=== PATIENT | female | born 1995 | race Caucasian/White ===

== ENCOUNTER 2019-03-30 17:15 | Observation (INO) | payer OTHER ==
--- NOTE | 2019-03-30 17:33 | ER Document Report ---
ED Medical Screen (RME) - General Chief Complaint: Fainting Stated Complaint: SYNCOPE Time Seen by Provider: 03/30/19 17:29 Mode of Arrival: Ambulatory Information source: Patient Notes: Patient states that she was cooking developed chest pain became dizzy and passed out. Patient complains of continued left-sided chest pain at this time. Patient does report family history of early CA. I have greeted and performed a rapid initial assessment of this patient. A comprehensive ED assessment and evaluation of the patient, analysis of test results and completion of the medical decision making process will be conducted by additional ED providers. TRAVEL OUTSIDE OF THE [place] IN LAST 30 DAYS: No Physical Exam - Vital signs Vitals: Temp Pulse Resp BP Pulse Ox 98.5 F 99 16 127/77 H 100 03/30/19 17:19 03/30/19 17:19 03/30/19 17:19 03/30/19 17:19 03/30/19 17:19 - Cardiovascular Rhythm: Regular Heart sounds: S1 appreciated, S2 appreciated Course - Vital Signs Vital signs: Temp Pulse Resp BP Pulse Ox 98.5 F 99 16 127/77 H 100 03/30/19 17:19 03/30/19 17:19 03/30/19 17:19 03/30/19 17:19 03/30/19 17:19
[2019-03-30] MEDS ORDERED: NORMAL SALINE 1000 ML 1,000 ML IV ONE (17:48)
--- NOTE | 2019-03-30 17:57 | ER Document Report ---
ED General - General Mode of Arrival: Ambulatory TRAVEL OUTSIDE OF THE [place] IN LAST 30 DAYS: No <DIETER ELIZABETH - Last Filed: 03/30/19 20:05> <MAYALLEYDEEPA - Last Filed: 03/31/19 06:48> - General Chief Complaint: Fainting Stated Complaint: SYNCOPE Time Seen by Provider: 03/30/19 17:29 - HPI Notes: 24-year-old female to the emergency department with complaints of a syncopal episode that her occurred just prior to arrival. She states that she was cooking in her kitchen when she started to experience left-sided chest pain and became acutely dizzy. She describes her dizziness as feeling like she is got a pass out. She states that she was walking to go sit down in her living room when she passed out in her kitchen. She denies hitting her head. Her sister did witness the episode and there was no tonic-clonic shaking. She does not have a history of seizures. She is on the ParaGard IUD. She denies any leg pain. She denies any recent travel. She denies any recent trauma or surgery. She denies any history of DVT. She denies chance of . She states that she has a little bit of resulting left-sided chest pain that hurts more when she touches it. She is never had this chest pain before. She states that her dad had a heart attack at "age 30 or 40". She denies any history of hypertension, diabetes, hyperlipidemia and herself. She is not a smoker. She does admit to having 2 glasses of wine this evening. (DIETER ELIZABETH) - Related Data Allergies/Adverse Reactions: No Known Allergies Allergy (Unverified 03/30/19 19:51) Past Medical History - General Information source: Patient - Social History Smoking Status: Never Smoker Frequency of alcohol use: Occasional Drug Abuse: None Family History: CAD, DM, Hyperlipidemia, Hypertension Patient has suicidal ideation: No Patient has homicidal ideation: No <DIETER ELIZABETH - Last Filed: 03/30/19 20:05> Review of Systems - Review of Systems Constitutional: denies: Chills, Fever EENT: No symptoms reported Cardiovascular: Chest pain, Syncope, Lightheaded. denies: Palpitations, Heart racing, Orthopnea, Dyspnea, Dizziness, Edema Respiratory: denies: Cough, Short of breath Gastrointestinal: denies: Abdominal pain, Diarrhea, Nausea, Vomiting Genitourinary: denies: Frequency, Flank pain Musculoskeletal: denies: Joint pain, Muscle pain Skin: No symptoms reported Neurological/Psychological: No symptoms reported -: Yes All other systems reviewed and negative <DIETER ELIZABETH - Last Filed: 03/30/19 20:05> Physical Exam - Vital signs Interpretation: Normal - General General appearance: Appears well, Alert - HEENT Head: Normocephalic, Atraumatic Eyes: Normal Pupils: PERRL Ears: Normal External canal: Normal Tympanic membrane: Normal Sinus: Normal Nasal: Normal Mouth/Lips: Normal Pharynx: Normal Neck: Normal, Supple. No: Lymphadenopathy, Meningismus - Respiratory Respiratory status: No respiratory distress Chest status: Nontender. No: Accessory muscle use Breath sounds: Normal. No: Decreased air movement, Rales, Rhonchi, Stridor, Wheezing Chest palpation: Normal - Cardiovascular Rhythm: Regular Heart sounds: Normal auscultation Murmur: No - Abdominal Inspection: Normal Distension: No distension Bowel sounds: Normal Tenderness: Nontender Organomegaly: No organomegaly - Back Back: Normal, Nontender - Neurological Neuro grossly intact: Yes Cognition: Normal Orientation: AAOx4 [place] Coma Scale Eye Opening: Spontaneous [place] Coma Scale Verbal: Oriented [place] Coma Scale Motor: Obeys Commands [place] Coma Scale Total: 15 Speech: Normal Cranial nerves: Normal. No: Facial palsy, Forehead sparing, Gaze palsy, Sensory deficit, Tongue deviation Cerebellar coordination: Normal. No: Gait ataxia Motor strength normal: LUE, RUE, LLE, RLE Additional motor exam normals: Equal cotton converter. No: Pronator drift Sensory: Normal - Psychological Associated symptoms: Normal affect, Normal mood - Skin Skin Temperature: Warm Skin Moisture: Dry Skin Color: Normal <WENDIE ELIZABETHBEGUILLERMO Cardenas - Last Filed: 03/30/19 20:05> - Vital signs Vitals: Temp Pulse Resp BP Pulse Ox 98.5 F 99 16 127/77 H 100 03/30/19 17:19 03/30/19 17:19 03/30/19 17:19 03/30/19 17:19 03/30/19 17:19 Course - Laboratory Result Diagrams: 03/30/19 18:04 03/30/19 18:04 - EKG Interpretation by Co EKG shows normal: Sinus rhythm Rate: Tachycardia Rhythm: Other - sinus tachycardia <DIETER ELIZABETH - Last Filed: 03/30/19 20:05> - Laboratory Result Diagrams: 03/30/19 18:04 03/30/19 18:04 <DEEPA FOLEY - Last Filed: 03/31/19 06:48> - Re-evaluation Re-evalutation: 03/30/19 20:05 Turned patient over to SHAYNE Foley pending CTA. He will await results, appropriately dispo patient. (DIETER ELIZABETH) Troponin was cycled and is downtrending. Patient is asymptomatic on my evalua tion. CTA without perfect contrast bolus but does not show large pulmonary embolism, because there is no large pulmonary embolism I do not suspect this was the cause of patient's chest pain and syncopal episode. I am more concerned about a dangerous arrhythmia. Added thyroid studies and magnesium. Discussed with Dr. Navas, he does recommend admission to the hospital. I discussed with Dr. Andres, he requests I speak to Dr. Vo, cardiology on-call. I did speak with Dr. Vo, he states that he does recommend admission and he will speak to Dr. Andres. Dr. Andres accepted to telemetry observation. Discussed with patient, patient and family at bedside state appreciation and agreement. (DEEPA FOLEY) - Vital Signs Vital signs: Temp Pulse Resp BP Pulse Ox 98.0 F 110 H 16 127/53 H 99 03/31/19 03:16 03/31/19 03:16 03/31/19 03:16 03/31/19 03:16 03/31/19 03:16 - Laboratory Laboratory results interpreted by me: 03/30/19 03/30/19 03/30/19 17:43 18:04 18:04 Hgb 10.3 L Hct 31.7 L MCV 72 L MCH 23.2 L RDW 15.8 H D-Dimer Sodium 136.6 L Urine Protein 100 H Urine Blood LARGE H Ur Leukocyte Esterase MODERATE H 03/30/19 18:04 Hgb Hct MCV MCH RDW D-Dimer 0.79 H Sodium Urine Protein Urine Blood Ur Leukocyte Esterase - EKG Interpretation by Me Additional EKG results interpreted by me: 03/30/19 18:03 no STEMI, t wave inversion in lead III no priors for comparison. (DIETER ELIZABETH) Discharge <DIETER ELIZABETH - Last Filed: 03/30/19 20:05> - Discharge Admitting Provider: Dmitry (Hospitalist) Unit Admitted: Telemetry <DEEPA FOLEY - Last Filed: 03/31/19 06:48> - Discharge Clinical Impression: Chest pain Qualifiers: Chest pain type: unspecified Qualified Code(s): R07.9 - Chest pain, unspecified Episode of syncope Qualifiers: Syncope type: unspecified Qualified Code(s): R55 - Syncope and collapse Condition: Stable Disposition: ADMITTED OBSERVATION
[2019-03-30 18:02] LABS: APPEARANCE,URINE CLOUDY; BILIRUBIN,URINE NEGATIVE (NEGATIVE); COLOR,URINE YELLOW; GLUCOSE, URINE NEGATIVE (NEGATIVE); KETONES,URINE NEGATIVE (NEGATIVE); LEUKOCYTE ESTERASE,URINE MODERATE (NEGATIVE); NITRITE,URINE NEGATIVE (NEGATIVE); PROTEIN,URINE 100 mg/dL (NEGATIVE); URINE SPECIFIC GRAVITY 1.023; UROBILINOGEN,URINE NEGATIVE mg/dL (<2.0)
--- NOTE | 2019-03-30 18:07 | EKG REPORT ---
SEVERITY:- OTHERWISE NORMAL ECG - SINUS TACHYCARDIA : Confirmed by: Kushal Whitman MD 30-Mar-2019 18:06:53
[2019-03-30 18:20] LABS: ABSOLUTE BASOPHILS # (AUTO) 0.1 10^3/uL (0.0-0.2); ABSOLUTE EOSINOPHILS # (AUTO) 0.2 10^3/uL (0.0-0.6); ABSOLUTE LYMPHOCYTES (AUTO) 2.6 10^3/uL (0.5-4.7); ABSOLUTE MONOCYTES (AUTO) 0.6 10^3/uL (0.1-1.4); ABSOLUTE NEUT (AUTO) 6.3 10^3/uL (1.7-8.2); BASOPHILS % (AUTO) 1.2 % (0-2); EOSINOPHILS % (AUTO) 2.5 % (0-6); HEMATOCRIT 31.7 % (36.0-47.0); HEMOGLOBIN 10.3 g/dL (12.0-15.5); LYMPHOCYTES % (AUTO) 25.9 % (13-45); MEAN CORPUSCULAR HEMOGLOBIN 23.2 pg (27.0-33.4); MEAN CORPUSCULAR HGB CONC 32.3 g/dL (32.0-36.0); MEAN CORPUSCULAR VOLUME 72 fl (80-97); MONOCYTES % (AUTO) 6.4 % (3-13); PLATELET COUNT 364 10^3/uL (150-450); RED BLOOD COUNT 4.42 10^6/uL (3.72-5.28); RED CELL DISTRIBUTION WIDTH 15.8 % (11.5-14.0); TOTAL CELLS COUNTED % (AUTO) 100 %; WHITE BLOOD COUNT 9.9 10^3/uL (4.0-10.5)
[2019-03-30 18:37] LABS: ALBUMIN 4.2 g/dL (3.5-5.0); ALKALINE PHOSPHATASE 75 U/L (38-126); ANION GAP 11 (5-19); ASPARTATE AMINO TRANSFERASE 21 U/L (14-36); BILIRUBIN,DIRECT 0.1 mg/dL (0.0-0.4); BILIRUBIN,TOTAL 0.6 mg/dL (0.2-1.3); BLOOD UREA NITROGEN 11 mg/dL (7-20); CALCIUM 9.2 mg/dL (8.4-10.2); CARBON DIOXIDE 23 mmol/L (22-30); CHLORIDE 103 mmol/L (98-107); GLUCOSE 96 mg/dL (75-110); POTASSIUM 3.9 mmol/L (3.6-5.0); TOTAL PROTEIN 7.7 g/dL (6.3-8.2)
[2019-03-30] MEDS ORDERED: ASPIRIN 325 MG TABLET PO ONE (18:38)
--- NOTE | 2019-03-30 18:39 | RADIOLOGY REPORT (SQ) ---
EXAM DESCRIPTION: ELBOW LEFT OVER 2 VIEWS COMPLETED DATE/TIME: 03/30/2019 6:31 pm REASON FOR STUDY: syncope, elbow pain COMPARISON: None. NUMBER OF VIEWS: Four views. TECHNIQUE: AP, lateral, and both oblique radiographic images acquired of the left elbow. LIMITATIONS: None. FINDINGS: MINERALIZATION: Normal. BONES: No acute fracture or dislocation. No worrisome bone lesions. JOINT: No effusion. SOFT TISSUES: No soft tissue swelling. Antecubital fossa venous catheter. OTHER: No other significant finding. IMPRESSION: No acute bone abnormality of the left elbow. TECHNICAL DOCUMENTATION: JOB ID: [id number] [employer]- All Rights Reserved Reading location - IP/workstation name: [email or web address]
--- NOTE | 2019-03-30 18:39 | RADIOLOGY REPORT (SQ) ---
EXAM DESCRIPTION: CHEST 2 VIEWS COMPLETED DATE/TIME: 03/30/2019 6:31 pm REASON FOR STUDY: cp COMPARISON: None. EXAM PARAMETERS: NUMBER OF VIEWS: two views TECHNIQUE: Digital Frontal and Lateral radiographic views of the chest acquired. RADIATION DOSE: NA LIMITATIONS: none FINDINGS: LUNGS AND PLEURA: No opacities, masses or pneumothorax. No pleural effusion. MEDIASTINUM AND HILAR STRUCTURES: No masses or contour abnormalities. HEART AND VASCULAR STRUCTURES: Heart normal size. No evidence for failure. BONES: No acute findings. HARDWARE: None in the chest. OTHER: No other significant finding. IMPRESSION: NO ACUTE RADIOGRAPHIC FINDING IN THE CHEST. TECHNICAL DOCUMENTATION: JOB ID: [id number] [employer]- All Rights Reserved Reading location - IP/workstation name: [email or web address]
[2019-03-30] MEDS ORDERED: CEFTRIAXONE 1 GM/D5W RTU 1 GM/50 ML RTUPB IV ONE (19:54)
--- NOTE | 2019-03-30 19:58 | RADIOLOGY REPORT (SQ) ---
EXAM DESCRIPTION: CTA CHEST COMPLETED DATE/TIME: 03/30/2019 7:11 pm REASON FOR STUDY: syncope, chest pain, elevated D Dimer COMPARISON: Chest radiographs earlier performed on 03/30/2019 TECHNIQUE: CT scan of the chest performed using helical scanning technique with dynamic intravenous contrast injection. Images reviewed with lung, soft tissue and bone windows. Reconstructed coronal and sagittal MPR images reviewed. Additional 3 dimensional post-processing performed to develop Maximal Intensity Projection images ([place] P). All images stored on PACS. All CT scanners at this facility use dose modulation, iterative reconstruction, and/or weight based d osing when appropriate to reduce radiation dose to as low as reasonably achievable (ALARA). [facility]: Dose Right [facility]: CareDose [facility]: Dose Right [facility]: Teradose 4D [facility]: [place] CONTRAST TYPE AND DOSE: contrast/concentration: Isovue 350.00 mg/ml; Total Contrast Delivered: 55.0 ml; Total Saline Delivered: 50.0 ml 55 mL Isovue 350- low osmolar. Contrast bolus not optimized for the pulmonary arteries. RENAL FUNCTION: GFR > 60. RADIATION DOSE: CT Rad equipment meets quality standard of care and radiation dose reduction techniq ues were employed. CTDIvol: 13.2 - 15.0 mGy. DLP: 524 mGy-cm. . LIMITATIONS: None. FINDINGS: LUNGS AND PLEURA: No masses, infiltrates, or pneumothorax. No pleural effusions or pleura l calcifications. AORTA AND GREAT VESSELS: No aneurysm. Contrast bolus not optimized for the aorta. HEART: No pericardial effusion. No significant coronary artery calcifications. PULMONARY ARTERIES: No large filling defect within the main lobar or segmental pulmonary arteries. HILAR AND MEDIASTINAL STRUCTURES: No identified masses or abnormal nodes. HARDWARE: None in the chest. UPPER ABDOMEN: No significant findings. Limited exam. THYROID AND OTHER SOFT TISSUES: No masses. No adenopathy. BONES: No acute or significant finding. 3D MIPS: Confirm above findings. OTHER: No other significant finding. IMPRESSION: Contrast bolus not optimized for the pulmonary arterial vasculature. No large pulmonary embolism, findings of pulmonary infarct, or secondary signs of right heart strain. Overall, unremar kable chest CT. COMMENT: Quality ID # [id number]: Final reports with documentation of one or more dose reduction techniques (e.g., Automated exposure control, adjustment of the mA and/or kV according to patient size, use of iterative reconstruction technique) TECHNICAL DOCUMENTATION: JOB ID: [id number] [employer]- All Rights Reserved Reading location - IP/workstation name: [email or web address]
[2019-03-30] MEDS ORDERED: ACETAMINOPHEN 325 MG TABLET PO PRN (22:03)
[2019-03-30] MEDS ORDERED: MAG HYDROX/AL HYDROX/SIMETH SUSP 30 ML UDCUP PO PRN (22:03)
[2019-03-30] MEDS ORDERED: ASPIRIN 81 MG TABLET, CHEWABLE PO ONE (22:03)
[2019-03-30] MEDS ORDERED: ENOXAPARIN SODIUM INJ 100 MG/1 ML DISP.SYRIN SUBCUT ONE (22:15)
[2019-03-30 22:47] LABS: FREE T4 (FREE THYROXINE) 1.13 ng/dL (0.78-2.19)
[2019-03-30 23:01] LABS: THYROID STIMULATING HORMONE 2.22 uIU/mL (0.47-4.68)
[2019-03-30 23:17] LABS: URINE AMPHETAMINES SCREEN NEGATIVE; URINE BARBITURATES SCREEN NEGATIVE; URINE BENZODIAZEPINES SCREEN NEGATIVE; URINE COCAINE SCREEN NEGATIVE; URINE MARIJUANA (THC) SCREEN NEGATIVE; URINE METHADONE SCREEN NEGATIVE; URINE PHENCYCLIDINE SCREEN NEGATIVE
--- NOTE | 2019-03-31 04:47 | PDOC H&P ---
History of Present Illness Admission Date/PCP: 03/30/19 22:11 IRLANDA MOJICA DO Patient complains of: Fainting History of Present Illness: PETTY MABRY is a 24 year old female without past medical history who presents 1 hour after an episode of 5 out of 5 sternal chest pain which occurred while cooking. It was associated with generalized weakness and dizziness followed by a witnessed syncopal episode falling to the floor with a brief loss of consciousness without seizure-like activity or postictal state. There is no preceding or subsequent headache, blurred vision, palpitations, nausea or vomiting. In the emergency room she has an unremarkable work-up including CTA chest and she is referred to the hospitalist for observation. She denies histo ry of exertional syncope or family history of sudden . Patient denies previous episode she denies any medications and is otherwise felt well. Past Medical History Medical History: None Cardiac Medical History: Reports: None Pulmonary Medical History: Reports: None EENT Medical History: Reports: None Neurological Medical History: Reports: None Endocrine Medical History: Reports: None Renal/ Medical History: Reports: None Malignancy Medical History: Reports: None GI Medical History: Reports: None Musculoskeltal Medical History: Reports: None Skin Medical History: Reports: None Psychiatric Medical History: Reports: None Traumatic Medical History: Reports: None Hematology: Reports: None Infectious Medical History: Reports: None Past Surgical History Past Surgical History: Reports: None Social History Information Source: Patient Lives with: Spouse/Significant other Smoking Status: Never Smoker Electronic Cigarette use?: No Hx Recreational Drug Use: No Drugs: None - Advance Directive Resuscitation Status: Full Code Family History Family History: CAD, DM, Hyperlipidemia, Hypertension Parental Family History Reviewed: Yes Children Family History Reviewed: Yes Sibling(s) Family History Reviewed.: Yes Medication/Allergy Allergies/Adverse Reactions: No Known Allergies Allergy (Unverified 03/30/19 19:51) Physical Exam Vital Signs: Temp Pulse Resp BP Pulse Ox 98.0 F 110 H 16 127/53 H 99 03/31/19 03:16 03/31/19 03:16 03/31/19 03:16 03/31/19 03:16 03/31/19 03:16 Intake & Output 03/29/19 03/30/19 03/31/19 11:59 11:59 11:59 Intake Total 1000 Balance 1000 Weight 92.3 kg General appearance: PRESENT: no acute distress, well-developed, well-nourished Head exam: PRESENT: atraumatic, normocephalic Eye exam: PRESENT: conjunctiva pink, EOMI, PERRLA. ABSENT: scleral icterus Ear exam: PRESENT: normal external ear exam Mouth exam: PRESENT: moist, tongue midline Neck exam: ABSENT: carotid bruit, JVD, lymphadenopathy, thyromegaly Respiratory exam: PRESENT: clear to auscultation vish. ABSENT: rales, rhonchi, wheezes Cardiovascular exam: PRESENT: RRR, other - Reproducible pain to palpation of sternum.. ABSENT: diastolic murmur, rubs, systolic murmur Pulses: PRESENT: normal dorsalis pedis pul Vascular exam: PRESENT: normal capillary refill GI/Abdominal exam: PRESENT: normal bowel sounds, soft. ABSENT: distended, guarding, mass, organolmegaly, rebound, tenderness Torso Front/Back Image: 1 - Reproducible pain to palpation Rectal exam: PRESENT: deferred Extremities exam: PRESENT: full ROM. ABSENT: calf tenderness, clubbing, pedal edema Neurological exam: PRESENT: alert, awake, oriented to person, oriented to place, oriented to time, oriented to situation, CN II-XII grossly intact. ABSENT: motor sensory deficit Psychiatric exam: PRESENT: appropriate affect, normal mood. ABSENT: homicidal ideation, suicidal ideation Skin exam: PRESENT: dry, intact, warm. ABSENT: cyanosis, rash Results Laboratory Results: 03/30/19 18:04 03/30/19 18:04 03/30/19 03/30/19 03/30/19 17:43 17:43 18:04 WBC 9.9 RBC 4.42 Hgb 10.3 L Hct 31.7 L MCV 72 L MCH 23.2 L MCHC 32.3 RDW 15.8 H Plt Count 364 Seg Neutrophils % 64.0 Sodium Potassium Chloride Carbon Dioxide Anion Gap BUN Creatinine Est GFR ( Amer) Glucose Calcium Magnesium 1.9 Total Bilirubin AST Alkaline Phosphatase Total Protein Albumin TSH Free T4 Serum HCG, Qual Urine Color YELLOW Urine Appearance CLOUDY Urine pH 5.0 Ur Specific [place] 1.023 Urine Protein 100 H Urine Glucose (UA) NEGATIVE Urine Ketones NEGATIVE Urine Blood LARGE H Urine Nitrite NEGATIVE Ur Leukocyte Esterase MODERATE H Urine WBC (Auto) 91 Urine RBC (Auto) >182 03/30/19 03/30/19 03/30/19 18:04 18:04 18:04 WBC RBC Hgb Hct MCV MCH MCHC RDW Plt Count Seg Neutrophils % Sodium 136.6 L Potassium 3.9 Chloride 103 Carbon Dioxide 23 Anion Gap 11 BUN 11 Creatinine 0.65 Est GFR ( Amer) > 60 Glucose 96 Calcium 9.2 Magnesium Total Bilirubin 0.6 AST 21 Alkaline Phosphatase 75 Total Protein 7.7 Albumin 4.2 TSH 2.22 Free T4 1.13 Serum HCG, Qual NEGATIVE Urine Color Urine Appearance Urine pH Ur Specific [place] Urine Protein Urine Glucose (UA) Urine Ketones Urine Blood Urine Nitrite Ur Leukocyte Esterase Urine WBC (Auto) Urine RBC (Auto) 03/30/19 03/30/19 03/31/19 18:04 20:40 02:37 Troponin I 0.072 0.060 0.057 Impressions: Chest X-Ray 03/30/19 17:31 IMPRESSION: NO ACUTE RADIOGRAPHIC FINDING IN THE CHEST. Elbow X-Ray 03/30/19 17:32 IMPRESSION: No acute bone abnormality of the left elbow. Chest/Abdomen CTA 03/30/19 18:37 IMPRESSION: Contrast bolus not optimized for the pulmonary arterial vasculature. No large pulmonary embolism, findings of pulmonary infarct, or secondary signs of right heart strain. Overall, unremarkable chest CT. Assessment and Plan - Diagnosis (1) Chest pain Qualifiers: Chest pain type: unspecified Qualified Code(s): R07.9 - Chest pain, unspecified Is this a current diagnosis for this admission?: Yes Plan: Unclear cause though likely muscle strain as reproducible to chest wall palpation. Follow-up telemetry and cardiac enzymes (2) Episode of syncope Qualifiers: Syncope type: unspecified Qualified Code(s): R55 - Syncope and collapse Is this a current diagnosis for this admission?: Yes Plan: Likely vasovagal secondary to pain, follow-up telemetry and cardiac enzymes. (3) Microcytic anemia Is this a current diagnosis for this admission?: Yes Plan: Likely iron deficient, follow-up anemia labs
[2019-03-31 05:05] LABS: RETICULOCYTE COUNT (AUTO) 1.26 % (0.66-2.85)
[2019-03-31 05:12] LABS: IRON(TIBC) 18.2 ug/dL (37-170)
[2019-03-31 05:48] LABS: FERRITIN 4.01 ng/mL (6.2-137.0)
[2019-03-31 06:18] LABS: FOLATE 7.93 ng/mL (>2.76)
[2019-03-31 08:23] VITALS: BP 119/66
[2019-03-31 08:31] LABS: HEMATOCRIT 29.7 % (36.0-47.0); HEMOGLOBIN 9.7 g/dL (12.0-15.5); MEAN CORPUSCULAR HEMOGLOBIN 23.5 pg (27.0-33.4); MEAN CORPUSCULAR HGB CONC 32.7 g/dL (32.0-36.0); MEAN CORPUSCULAR VOLUME 72 fl (80-97); PLATELET COUNT 328 10^3/uL (150-450); RED BLOOD COUNT 4.13 10^6/uL (3.72-5.28); RED CELL DISTRIBUTION WIDTH 15.7 % (11.5-14.0); WHITE BLOOD COUNT 7.3 10^3/uL (4.0-10.5)
[2019-03-31] MEDS ORDERED: ENOXAPARIN SODIUM INJ 100 MG/1 ML DISP.SYRIN SUBCUT SCH (10:00)
--- NOTE | 2019-03-31 16:33 | PDOC DISCHARGE SUMMARY ---
Impression - Admit/DC Date/PCP Admission Date/Primary Care Provider: 03/30/19 22:11 IRLANDA TITUS MOJICA, DO Discharge Date: 03/31/19 - Discharge Diagnosis (1) Syncope Is this a current diagnosis for this admission?: Yes - Additional Information Resuscitation Status: Full Code Discharge Diet: As Tolerated Discharge Activity: Activity As Tolerated, Balance Activity w/Rest Referrals: PRIMARY,CARE PROVIDER [Other] (PATIENT WILL MAKE OWN APPT.) Prescriptions: Ferrous Sulfate [Feosol 325 mg Tablet] 325 mg PO BIDPCBS #60 tablet Pantoprazole Sodium [Protonix [address] Packet] 40 mg PO QAM #30 granpkt. Home Medications: Ferrous Sulfate [Feosol 325 mg Tablet] 325 mg PO BIDPCBS #60 tablet 03/31/19 Pantoprazole Sodium [Protonix [address] Packet] 40 mg PO QAM #30 granpkt. 03/31/19 History of Present Illiness History of Present Illness: Admitting hospitalist's H&P: PETTY MABRY is a 24 year old female without past medical history who presents 1 hour after an episode of 5 out of 5 sternal chest pain which occurred while cooking. It was associated with generalized weakness and dizziness followed by a witnessed syncopal episode falling to the floor with a brief loss of consciousness without seizure-like activity or postictal state. There is no preceding or subsequent headache, blurred vision, palpitations, nausea or vomiting. In the emergency room she has an unremarkable work-up including CTA chest and she is referred to the hospitalist for observation. Hospital Course Hospital Course: Patient was admitted for his syncope. Upon encounter, she is chest pain-free and denies any acute symptoms. Upon further questioning, she does say that she has prior episodes in the past where she gets really dizzy and lightheaded when she stands up. She says that prior to presentation, she was standing in the kitchen when she had the same dizziness and lightheadedness before passing out. Her orthostatic vital signs were unremarkable. She was seen by cardiology as well. She will closely follow-up with Dr. Bang who has recommended outpatient stress testing, echocardiogram and possible 30-day event monitoring when she sees his in his clinic. Physical Exam Vital Signs: Temp Pulse Resp BP Pulse Ox 97.7 F 83 16 119/66 99 03/31/19 10:33 10/14/19 10:33 03/31/19 10:33 03/31/19 10:33 03/31/19 10:33 Intake & Output 03/30/19 03/31/19 04/01/19 06:59 06:59 06:59 Intake Total 1000 480 Balance 1000 480 Weight 203 lb 7.787 oz General appearance: PRESENT: no acute distress, well-developed, well-nourished Head exam: PRESENT: atraumatic, normocephalic Eye exam: PRESENT: conjunctiva pink, EOMI, PERRLA. ABSENT: scleral icterus Ear exam: PRESENT: normal external ear exam Mouth exam: PRESENT: moist, tongue midline Neck exam: ABSENT: carotid bruit, JVD, lymphadenopathy, thyromegaly Respiratory exam: PRESENT: clear to auscultation vish. ABSENT: rales, rhonchi, wheezes Cardiovascular exam: PRESENT: RRR. ABSENT: diastolic murmur, rubs, systolic murmur Pulses: PRESENT: normal dorsalis pedis pul GI/Abdominal exam: PRESENT: normal bowel sounds, soft. ABSENT: distended, guarding, mass, organolmegaly, rebound, tenderness Rectal exam: PRESENT: deferred Extremities exam: PRESENT: full ROM. ABSENT: calf tenderness, clubbing, pedal edema Neurological exam: PRESENT: alert, awake, oriented to person, oriented to place, oriented to time, oriented to situation, CN II-XII grossly intact. ABSENT: motor sensory deficit Results Laboratory Results: WBC 7.3 10^3/uL (4.0-10.5) 03/31/19 08:08 RBC 4.13 10^6/uL (3.72-5.28) 03/31/19 08:08 Hgb 9.7 g/dL (12.0-15.5) L 03/31/19 08:08 Hct 29.7 % (36.0-47.0) L 03/31/19 08:08 MCV 72 fl (80-97) L 03/31/19 08:08 MCH 23.5 pg (27.0-33.4) L 03/31/19 08:08 MCHC 32.7 g/dL (32.0-36.0) 03/31/19 08:08 RDW 15.7 % (11.5-14.0) H 03/31/19 08:08 Plt Count 328 10^3/uL (150-450) 03/31/19 08:08 Lymph % (Auto) 25.9 % (13-45) 03/30/19 18:04 [place] % (Auto) 6.4 % (3-13) 03/30/19 18:04 Eos % (Auto) 2.5 % (0-6) 03/30/19 18:04 Baso % (Auto) 1.2 % (0-2) 03/30/19 18:04 Reticulocyte # 0.050 10^6/uL (0.028-0.122) 03/31/19 04:51 Absolute Neuts (auto) 6.3 10^3/uL (1.7-8.2) 03/30/19 18:04 Absolute Lymphs (auto) 2.6 10^3/uL (0.5-4.7) 03/30/19 18:04 Absolute Monos (auto) 0.6 10^3/uL (0.1-1.4) 03/30/19 18:04 Absolute Eos (auto) 0.2 10^3/uL (0.0-0.6) 03/30/19 18:04 Absolute Basos (auto) 0.1 10^3/uL (0.0-0.2) 03/30/19 18:04 Seg Neutrophils % 64.0 % (42-78) 03/30/19 18:04 Retic Count (auto) 1.26 % (0.66-2.85) 03/31/19 04:51 D-Dimer 0.79 ug/mL (0.00-0.50) H 03/30/19 18:04 Sodium 136.6 mmol/L (137-145) L 03/30/19 18:04 Potassium 3.9 mmol/L (3.6-5.0) 03/30/19 18:04 Chloride 103 mmol/L (98-107) 03/30/19 18:04 Carbon Dioxide 23 mmol/L (22-30) 03/30/19 18:04 Anion Gap 11 (5-19) 03/30/19 18:04 BUN 11 mg/dL (7-20) 03/30/19 18:04 Creatinine 0.65 mg/dL (0.52-1.25) 03/30/19 18:04 Est GFR ( Amer) > 60 (>60) 03/30/19 18:04 Est GFR (MDRD) Non-Af > 60 (>60) 03/30/19 18:04 Glucose 96 mg/dL (75-110) 03/30/19 18:04 POC Glucose 103 mg/dL (70-110) 03/30/19 18:01 Calcium 9.2 mg/dL (8.4-10.2) 03/30/19 18:04 Magnesium 1.9 mg/dL (1.6-2.3) 03/30/19 17:43 Iron 18.2 ug/dL (37-170) L 03/31/19 04:51 TIBC 337 ug/dL (250-450) 03/31/19 04:51 % Saturation 5 % 03/31/19 04:51 Ferritin 4.01 ng/mL (6.2-137.0) L 03/31/19 04:51 Total Bilirubin 0.6 mg/dL (0.2-1.3) 03/30/19 18:04 Direct Bilirubin 0.1 mg/dL (0.0-0.4) 03/30/19 18:04 Neonat Total Bilirubin Not Reportable 03/30/19 18:04 Neonat Direct Bilirubin Not Reportable 03/30/19 18:04 Neonat Indirect Bili Not Reportable 03/30/19 18:04 AST 21 U/L (14-36) 03/30/19 18:04 ALT 15 U/L (<35) 03/30/19 18:04 Alkaline Phosphatase 75 U/L (38-126) 03/30/19 18:04 Troponin I 0.065 ng/mL 03/31/19 08:08 Total Protein 7.7 g/dL (6.3-8.2) 03/30/19 18:04 Albumin 4.2 g/dL (3.5-5.0) 03/30/19 18:04 Vitamin B12 583.0 pg/mL (239-931) 03/31/19 04:51 Folate 7.93 ng/mL (>2.76) 03/31/19 04:51 TSH 2.22 uIU/mL (0.47-4.68) 03/30/19 18:04 Free T4 1.13 ng/dL (0.78-2.19) 03/30/19 18:04 Serum HCG, Qual NEGATIVE (NEGATIVE) 03/30/19 18:04 Urine Color YELLOW 03/30/19 17:43 Urine Appearance CLOUDY 03/30/19 17:43 Urine pH 5.0 (5.0-9.0) 03/30/19 17:43 Ur Specific [place] 1.023 03/30/19 17:43 Urine Protein 100 mg/dL (NEGATIVE) H 03/30/19 17:43 Urine Glucose (UA) NEGATIVE mg/dL (NEGATIVE) 03/30/19 17:43 Urine Ketones NEGATIVE mg/dL (NEGATIVE) 03/30/19 17:43 Urine Blood LARGE (NEGATIVE) H 03/30/19 17:43 Urine Nitrite NEGATIVE (NEGATIVE) 03/30/19 17:43 Urine Bilirubin NEGATIVE (NEGATIVE) 03/30/19 17:43 Urine Urobilinogen NEGATIVE mg/dL (<2.0) 03/30/19 17:43 Ur Leukocyte Esterase MODERATE (NEGATIVE) H 03/30/19 17:43 Urine WBC (Auto) 91 /HPF 03/30/19 17:43 Urine RBC (Auto) >182 /HPF 03/30/19 17:43 Urine Bacteria (Auto) TRACE /HPF 03/30/19 17:43 Squamous Epi Cells Auto 20 /HPF 03/30/19 17:43 Urine Mucus (Auto) OCC /LPF 03/30/19 17:43 Urine Ascorbic Acid NEGATIVE (NEGATIVE) 03/30/19 17:43 Urine Opiates Screen NEGATIVE 03/30/19 17:43 Urine Methadone Screen NEGATIVE 03/30/19 17:43 Ur Barbiturates Screen NEGATIVE 03/30/19 17:43 Ur Phencyclidine Scrn NEGATIVE 03/30/19 17:43 Ur Amphetamines Screen NEGATIVE 03/30/19 17:43 U Benzodiazepines Scrn NEGATIVE 03/30/19 17:43 Urine Cocaine Screen NEGATIVE 03/30/19 17:43 U Marijuana (THC) Screen NEGATIVE 03/30/19 17:43 03/30/19 03/30/19 03/31/19 18:04 20:40 02:37 Troponin I 0.072 0.060 0.057 03/31/19 08:08 Troponin I 0.065 Impressions: Chest X-Ray 03/30/19 17:31 IMPRESSION: NO ACUTE RADIOGRAPHIC FINDING IN THE CHEST. Elbow X-Ray 03/30/19 17:32 IMPRESSION: No acute bone abnormality of the left elbow. Chest/Abdomen CTA 03/30/19 18:37 IMPRESSION: Contrast bolus not optimized for the pulmonary arterial vasculature. No large pulmonary embolism, findings of pulmonary infarct, or secondary signs of right heart strain. Overall, unremarkable chest CT. Stroke Is this a Stroke Patient?: No Acute Heart Failure - Is this a Heart Failure Patient?: No
[2019-03-31] MEDS ORDERED: FERROUS SULFATE 325 MG TABLET PO SCH (18:00)
== END 2019-03-31 11:29 | disposition home or self-care (01) ==
LOC: ER 17:15 → EH 22:11 → 5 23:11
PROVIDERS: ADMIT Internal Medicine; ATTEND Internal Medicine
DX: R55 Syncope and collapse (principal); R07.89 Other chest pain; R53.1 Weakness; R42 Dizziness and giddiness; D50.9 Iron deficiency anemia, unspecified; Z82.49 Family history of ischemic heart disease and other diseases of the circulatory system; Z83.3 Family history of diabetes mellitus; R00.0 Tachycardia, unspecified; Z97.5 Presence of (intrauterine) contraceptive device
CPT/HCPCS: 93005; 99285; 96372; 96360; 36415 ×2; 87086; 84439; 82962; 82607; 82728; 82746; 83540; 83550; 83735; 84443; 84703; 85025; 85027; 85045; 80053; 81001; 84484 ×2; 80307; 85379; 71046; 73080; 71275; 93010; G0378 ×3; J7030; J1650